=== PATIENT | female | born 1980 | race Caucasian/White ===

== ENCOUNTER 2017-01-17 20:34 | Emergency (ER) | payer OTHER ==
[~2017-01-17] VITALS: Ht 162.6 cm; Wt 80.1 kg
[~2017-01-17 20:34] MED LIST: CLEOCIN300 MG PO; PHENTERMINE HCL30 MG PO; VALSARTAN160 MG PO
[2017-01-17 20:40] VITALS: BP 143/73
[2017-01-17 21:35] LABS: BASOPHIL COUNT 0.1 K/uL (0-0.1); EOSINOPHIL (%) 2.4 % (0-5); EOSINOPHIL COUNT 0.2 K/uL (0-0.3); HEMATOCRIT 39.9 % (36.0-46.0); IMMATURE GRANULOCYTE (%) 0.3 % (0.0-0.7); INSTRUMENT ABS NEUTROPHIL CT 4.9 K/uL; LYMPHOCYTE COUNT 1.9 K/uL (1.0-2.8); MCHC 33.3 G/DL (30.0-36.0); MCV 89.9 FL (83-99); MEAN PLAT.VOLUME 9.7 uM^3 (9.5-12.4); MONOCYTE (%) 7.3 % (3-12); MONOCYTE COUNT 0.6 K/uL (0-0.8); NEUTROPHIL (%) 64.3 % (45-76); NEUTROPHIL COUNT 4.9 K/uL (1.8-6.4); PLATELET COUNT 254 K/uL (156-360); RBC DIS.WIDTH-CV 12.8 % (11.8-14.6); RBC DIS.WIDTH-SD 41.9 % (39-53); RED BLOOD COUNT 4.44 M/uL (3.80-5.20); WHITE BLOOD COUNT 7.5 K/uL (4.1-10.2)
[2017-01-17 21:43] LABS: CHLORIDE 109 mEq/L (99-109); SODIUM 138 mEq/L (136-147)
[2017-01-17 21:45] LABS: GLUCOSE 85 mg/dL (70-99)
[2017-01-17 21:47] LABS: ANION GAP 8 MEQ/L (2-14); TOTAL BILIRUBIN 0.3 mg/dL (0.0-1.0)
[2017-01-17 21:49] LABS: ALKALINE PHOSPHATASE 53 IU/L (3-129); GFR ESTIMATE (CALCULATED) > 59 mL/min/
[2017-01-17 21:50] LABS: UREA NITROGEN (BUN) 17 mg/dL (9-23)
[2017-01-17 21:51] LABS: DIRECT BILIRUBIN 0.1 mg/dL (0.0-0.3)
[2017-01-17 22:02] LABS: QUANTITATIVE HCG < 4.0 MIU/ML
== END 2017-01-17 21:49 | disposition home or self-care (01) ==
LOC: EXP 20:34 → EME 20:34 → EXP 21:49
PROVIDERS: Physician Assistant
PROC: 3E0234Z Introduction of Serum, Toxoid and Vaccine into Muscle, Percutaneous Approach (ICD-10-PCS; principal; 2017-01-17)
DX: S60.943A Unspecified superficial injury of left middle finger, initial encounter (principal); W46.1XXA Contact with contaminated hypodermic needle, initial encounter; Z77.21 Contact with and (suspected) exposure to potentially hazardous body fluids; Y99.0 Civilian activity done for income or pay; Z23 Encounter for immunization
CPT/HCPCS: 80048; 80076; 84702; 85025; 86703; 86706; 86803; 99281; 99284